=== PATIENT | male | born 1960 | race Caucasian/White ===

== ENCOUNTER 2022-06-01 15:28 | Emergency (ER) | payer SELFPAY ==
[~2022-06-01] VITALS: Ht 170.2 cm; Wt 89.8 kg
--- NOTE | 2022-06-01 15:40 | NUR ---
RECIVED PT 62 YRS MALE CAME BY PRAJOSE FROM HOME S/P IST TIME SEIZURE CONFUSED RESPIRATIN SPONT AND EASY
--- NOTE | 2022-06-01 15:45 | NUR ---
SEEN BY DR. ARCE
[2022-06-01] MEDS ORDERED: LEVETIRACETAM (500MG) 500 MG in IV NS 0.9% 100 ML IV ONE (16:00)
[2022-06-01] MEDS ORDERED: IV NS 0.9% 1,000 ML BAG IV ONE (16:00)
--- NOTE | 2022-06-01 16:00 | NUR ---
INSERTED ANGO CATH # 20 ON LT AC BLOOD DROW AND SENT TO LAB
[2022-06-01 16:03] LABS: BASOPHILS # (AUTO) 0.1 K/uL (0.0-0.2); BASOPHILS % (AUTO) 0.8 % (0.0-2.0); EOSINOPHILS % (AUTO) 0.5 % (0.0-6.0); HEMATOCRIT 42 % (39-51); HEMOGLOBIN 14.2 g/dL (13.5-17.5); LYMPHOCYTES # (AUTO) 1.2 K/uL (0.8-4.8); LYMPHOCYTES % (AUTO) 13.3 % (20.0-44.0); MEAN CORPUSCULAR HGB CONC 34 g/dl (31.0-36.0); MEAN CORPUSCULAR VOLUME 96 fL (80-96); MONOCYTES # (AUTO) 1.1 K/uL (0.1-1.30); MONOCYTES % (AUTO) 12.7 % (2.0-12.0); NEUTROPHILS # (AUTO) 6.5 K/uL (1.8-8.9); NEUTROPHILS % (AUTO) 72.7 % (43.0-81.0); PLATELET COUNT (AUTO) 184 K/uL (150-450); WHITE BLOOD COUNT (AUTO) 8.9 K/uL (4.3-11.0)
[2022-06-01 16:14] LABS: CALCIUM, SERUM 8.6 mg/dL (8.5-10.1); CARBON DIOXIDE 20 mmol/L (21-32); CHLORIDE 93 mmol/L (98-107); CREATININE 1.6 mg/dL (0.6-1.3); GLUCOSE 135 mg/dL (74-106); SODIUM SERUM 131 mmol/L (136-145); UREA NITROGEN, BLOOD 8 mg/dL (7-18)
--- NOTE | 2022-06-01 16:15 | NUR ---
CXRAY DONE AT BED RENNY AND ON LT HAND
[2022-06-01 16:20] LABS: ALANINE AMINOTRANSFERASE 27 U/L (12-78); ALBUMIN 3.4 g/dL (3.4-5.0); ALCOHOL, BLOOD < 3 mg/dL (0-0); ALKALINE PHOSPHATASE 105 U/L (46-116); ASPARTATE AMINOTRANSFERASE 38 U/L (15-37); BILIRUBIN,DIRECT 0.4 mg/dL (0.0-0.2); BILIRUBIN,TOTAL 1.3 mg/dL (0.2-1.0); TOTAL PROTEIN, SERUM 7.3 g/dL (6.4-8.2)
--- NOTE | 2022-06-01 16:23 | NUR ---
ACCUCHECK DONE 115 MG/DL DR. LAW ALANIS
--- NOTE | 2022-06-01 16:30 | NUR ---
TO CT SCAN OF HEAD VIA [facility]
--- NOTE | 2022-06-01 17:51 | NUR ---
UA SENT TO LAB
--- NOTE | 2022-06-01 18:50 | NUR ---
DR. ARCE AT BED SIDE result of procedure AND PLAN OF CARE no active SEIZUR paln to d/c home
--- NOTE | 2022-06-01 18:52 | NUR ---
DINESES any weekness no pain D/C INSTRACTION GIVEN TO PT FULLY AND VERBLIZED UNDERSTOOD D/C HOME STABLE CONDITION D/C HL DONE
[2022-06-01 19:01] VITALS: BP 164/92
== END 2022-06-01 19:02 | disposition home or self-care (01) ==
LOC: ER 15:33
DX: S61.412A Laceration without foreign body of left hand, initial encounter (principal); R56.9 Unspecified convulsions; X58.XXXA Exposure to other specified factors, initial encounter; Y93.89 Activity, other specified; Y92.89 Other specified places as the place of occurrence of the external cause; Y99.8 Other external cause status
CPT/HCPCS: 99291; 96365; 93005; 71045; 70450; 73110; 85025; 80048; 80076; 36415; 85730; 82962; 80320; 80307; J7030 ×2; J1953; G0480